=== PATIENT | male | born 1990 | race American Indian/Alaskan Native ===

== ENCOUNTER 2020-06-04 13:18 | Emergency (ER) | payer SELFPAY ==
[2020-06-04 14:34] VITALS: BP 126/79
[2020-06-04] MEDS ORDERED: ONDANSETRON 4 MG/2 ML INJ IV ONE (14:47)
[2020-06-04] MEDS ORDERED: MECLIZINE 25 MG TAB PO ONE (14:47)
[2020-06-04] MEDS ORDERED: SODIUM CHLORIDE 0.9% 1000 ML 1,000 ML IV ONE (14:47)
--- NOTE | 2020-06-04 15:27 | Emergency Department Report ---
ED Dizziness HPI - General Chief Complaint: Nausea/Vomiting/Diarrhea Stated Complaint: DIZZY/VOMIT Time Seen by Provider: 06/04/20 14:31 Source: patient Mode of arrival: Ambulatory Limitations: No Limitations - History of Present Illness Initial Comments: Patient is a 29-year-old male presents emergency room complaints of dizziness that began yesterday. He states that he has an sensation of the room spinning. He states that he only feels the symptoms when he stands up. He states that his head feels heavy and he begins to feel the room spinning as soon as he stands up. He states that he then begins to feel overheated and nauseous. He denies any recent illness. He denies any vision changes, numbness, weakness, vomiting, diarrhea, fever. He denies any past medical history or allergies to medications. - Related Data Previous Rx's Medication Instructions Recorded Last Taken Type Prednisone [predniSONE 10 mg 10 mg PO .TAPER #1 tab.ds.pk 08/23/15 Unknown Rx (6-Day Pack, 21 Tabs)] Pseudoephed/Cod/Guaifen 5 ml PO TID PRN #75 ml 08/23/15 Unknown Rx [Robitussin DAC 10-100-30Mg/5Ml] Azithromycin [Zithromax Z-WILLIAM] 250 mg PO DAILY #6 tab 08/11/16 Unknown Rx Benzonatate [Tessalon Perles] 100 mg PO Q8HR #10 capsule 08/11/16 Unknown Rx Cetirizine HCl [ZyrTEC] 10 mg PO DAILY #30 capsule 08/11/16 Unknown Rx Ibuprofen [Motrin 800 MG tab] 800 mg PO Q8HR PRN #30 tablet 08/11/16 Unknown Rx Meclizine [Antivert] 25 mg PO Q8HR PRN #14 tablet 06/04/20 Unknown Rx Allergies Allergy/AdvReac Type Severity Reaction Status Date / Time shellfish derived Allergy Swelling Verified 06/28/15 00:08 ED Review of Systems ROS: Stated complaint: DIZZY/VOMIT Other details as noted in HPI Comment: All other systems reviewed and negative ED Past Medical Hx - Past Medical History Previous Medical History?: No - Surgical History Past Surgical History?: No Additional Surgical History: bunion removal ? - Social History Smoking Status: Never Smoker Substance Use Type: None - Medications Home Medications: Home Medications Medication Instructions Recorded Confirmed Last Taken Type Prednisone [predniSONE 10 mg 10 mg PO .TAPER #1 tab.ds.pk 08/23/15 Unknown Rx (6-Day Pack, 21 Tabs)] Pseudoephed/Cod/Guaifen 5 ml PO TID PRN #75 ml 08/23/15 Unknown Rx [Robitussin DAC 10-100-30Mg/5Ml] Azithromycin [Zithromax Z-WILLIAM] 250 mg PO DAILY #6 tab 08/11/16 Unknown Rx Benzonatate [Tessalon Perles] 100 mg PO Q8HR #10 capsule 08/11/16 Unknown Rx Cetirizine HCl [ZyrTEC] 10 mg PO DAILY #30 capsule 08/11/16 Unknown Rx Ibuprofen [Motrin 800 MG tab] 800 mg PO Q8HR PRN #30 tablet 08/11/16 Unknown Rx Meclizine [Antivert] 25 mg PO Q8HR PRN #14 tablet 06/04/20 Unknown Rx ED Physical Exam - General Limitations: No Limitations General appearance: alert, in no apparent distress - Head Head exam: Present: atraumatic, normocephalic - Eye Eye exam: Present: normal appearance, PERRL, EOMI. Absent: conjunctival injection, periorbital swelling, periorbital tenderness Pupils: Present: normal accommodation - ENT ENT exam: Present: mucous membranes moist, TM's normal bilaterally, normal external ear exam - Respiratory Respiratory exam: Present: normal lung sounds bilaterally. Absent: respiratory distress, wheezes, rales, rhonchi, stridor, chest wall tenderness, accessory muscle use, decreased breath sounds, prolonged expiratory - Cardiovascular Cardiovascular Exam: Present: regular rate, normal rhythm, normal heart sounds. Absent: systolic murmur, diastolic murmur, rubs, gallop - Neurological Exam Neurological exam: Present: alert, oriented X3, CN II-XII intact, normal gait, other (normal finger to nose, normal heel to mcdonald, 5/5 muscle strength in the BUE/BLE, sensation intact throughout, no focal neuro deficit). Absent: motor sensory deficit - Psychiatric Psychiatric exam: Present: normal affect, normal mood - Skin Skin exam: Present: warm, dry, intact ED Course Vital Signs 06/04/20 06/04/20 13:35 17:35 Temperature 99.7 F H 98.2 F Pulse Rate 54 L Respiratory 18 Rate Blood Pressure 126/79 [Right] O2 Sat by Pulse 99 Oximetry ED Medical Decision Making - Lab Data Result diagrams: 06/04/20 15:11 06/04/20 15:11 Lab Results 06/04/20 06/04/20 Range/Units 15:11 15:11 WBC 9.3 (4.5-11.0) K/mm3 RBC 5.65 H (3.65-5.03) M/mm3 Hgb 15.2 (11.8-15.2) gm/dl Hct 46.2 H (35.5-45.6) % MCV 82 L (84-94) fl MCH 27 L (28-32) pg MCHC 33 (32-34) % RDW 15.1 (13.2-15.2) % Plt Count 221 (140-440) K/mm3 Lymph % (Auto) 7.6 L (13.4-35.0) % [place] % (Auto) 4.0 (0.0-7.3) % Eos % (Auto) 0.0 (0.0-4.3) % Baso % (Auto) 0.1 (0.0-1.8) % Lymph # (Auto) 0.7 L (1.2-5.4) K/mm3 [place] # (Auto) 0.4 (0.0-0.8) K/mm3 Eos # (Auto) 0.0 (0.0-0.4) K/mm3 Baso # (Auto) 0.0 (0.0-0.1) K/mm3 Seg Neutrophils % 88.3 H (40.0-70.0) % Seg Neutrophils # 8.2 H (1.8-7.7) K/mm3 Sodium 139 (137-145) mmol/L Potassium 3.9 (3.6-5.0) mmol/L Chloride 101.7 (98-107) mmol/L Carbon Dioxide 24 (22-30) mmol/L Anion Gap 17 mmol/L BUN 10 (9-20) mg/dL Creatinine 0.9 (0.8-1.3) mg/dL Estimated GFR > 60 ml/min BUN/Creatinine Ratio 11 % Glucose 87 (75-100) mg/dL Calcium 9.3 (8.4-10.2) mg/dL Magnesium 2.00 (1.7-2.3) mg/dL Total Bilirubin 0.80 (0.1-1.2) mg/dL AST 16 (5-40) units/L ALT 11 (7-56) units/L Alkaline Phosphatase 92 (35-129) units/L Total Creatine Kinase 173 H (55-170) units/L Total Protein 7.2 (6.3-8.2) g/dL Albumin 4.3 (3.9-5) g/dL Albumin/Globulin Ratio 1.5 % Vital Signs 06/04/20 06/04/20 13:35 17:35 Temperature 99.7 F H 98.2 F Pulse Rate 54 L Respiratory 18 Rate Blood Pressure 126/79 [Right] O2 Sat by Pulse 99 Oximetry - EKG Data EKG shows normal: sinus rhythm, axis, intervals, QRS complexes, ST-T waves Rate: bradycardia - Radiology Data Radiology results: report reviewed CT BRAIN: 06/04/2020 INDICATION / CLINICAL INFORMATION: dizziness. COMPARISON: None available. FINDINGS: BRAIN/INTRACRANIAL STRUCTURES: Unenhanced CT images of the brain dated straight no evidence of acute intracranial abnormality. Ventricles and sulci are normal in size and shape. There is no evidence of hemorrhage or mass. There are no abnormal extra-axial fluid collections. EXTRACRANIAL STRUCTURES: Unremarkable. IMPRESSION: Negative unenhanced CT of the brain. All CT scans at this location are performed using dose reduction to ALARA by means of automated exposure control. Signer Name: Ebenezer Levine MD Signed: 06/04/2020 3:50 PM Workstation Name: [id number] Transcribed By: AO Dictated By: Ebenezer Levine MD Electronically Authenticated By: Ebenezer Levine MD Signed Date/Time: 06/04/20 155 DD/ 1549 TD/TT: - Medical Decision Making Patient is a 29-year-old male presents emergency room complaints of dizziness that began yesterday. He states that he has an sensation of the room spinning. He states that he only feels the symptoms when he stands up. He states that his head feels heavy and he begins to feel the room spinning as soon as he stands up. He states that he then begins to feel overheated and nauseous. He denies any recent illness. He denies any vision changes, numbness, weakness, vomiting, diarrhea, fever. He denies any past medical history or allergies to medications. VSS. normal orthostatic vital signs. no neuro deficits on exam. labs are normal. EKG with sinus bradycardia, otherwise normal. CT head: Negative unenhanced CT of the brain. pt given 1L IVF, zofran and meclizine and dizziness improved. he states that he only experiences the dizziness with head movements but at rest has no symptoms. presentation most likely consistent with vertigo. pt given prescription for meclizine. advised pt Please take medication as prescribed. Increase your water intake. Please follow-up with your primary care doctor. Return to emergency room immediately for any new or worsening symptoms. - Differential Diagnosis vertigo, labyrinthitis, cerumen, CVA, otitis, mass, hypotension, anemi Critical care attestation.: If time is entered above; I have spent that time in minutes in the direct care of this critically ill patient, excluding procedure time. ED Disposition Clinical Impression: Vertigo, Dizziness, Nausea Disposition: - TO HOME OR SELFCARE Is pt being admited?: No Does the pt Need Aspirin: No Condition: Stable Instructions: Vertigo (ED) Additional Instructions: Please take medication as prescribed. Increase your water intake. Please follow-up with your primary care doctor. Return to emergency room immediately for any new or worsening symptoms. Prescriptions: Meclizine [Antivert] 25 mg PO Q8HR PRN #14 tablet PRN Reason: Vertigo Referrals: PRIMARY MD ADI [Primary Care Provider] - 2-3 Days NIKKI HOFFMAN MD [Staff Physician] - 2-3 Days [facility] [Provider Group] - 2-3 Days Forms: Accompanied Note Time of Disposition: 17:28 Print Language: CHINESE
--- NOTE | 2020-06-04 15:54 | Cat Scan Report ---
CT BRAIN: 06/04/2020 INDICATION / CLINICAL INFORMATION: dizziness. COMPARISON: None available. FINDINGS: BRAIN/INTRACRANIAL STRUCTURES: Unenhanced CT images of the brain dated straight no evidence of acute intracranial abnormality. Ventricles and sulci are normal in size and shape. There is no evidence of hemorrhage or mass. There are no abnormal extra-axial fluid collections. EXTRACRANIAL STRUCTURES: Unremarkable. IMPRESSION: Negative unenhanced CT of the brain. All CT scans at this location are performed using dose reduction to ALARA by means of automated expos ure control. Signer Name: Ebenezer Levine MD Signed: 06/04/2020 3:50 PM Workstation Name: [id number]
[2020-06-04 15:58] LABS: Alanine Aminotransferase 11 units/L (7-56); Albumin 4.3 g/dL (3.9-5); BUN/Creatinine Ratio 11; Blood Urea Nitrogen 10 mg/dL (9-20); Calcium 9.3 mg/dL (8.4-10.2); Hemolysis Index 13
[2020-06-04 16:09] LABS: Basophils % (Auto) 0.1 % (0.0-1.8); Hematocrit 46.2 % (35.5-45.6); Hemoglobin 15.2 gm/dl (11.8-15.2); Lymphocytes # (Auto) 0.7 K/mm3 (1.2-5.4); Lymphocytes % (Auto) 7.6 % (13.4-35.0); Mean Corpuscular HGB Conc 33 % (32-34); Mean Corpuscular Volume 82 fl (84-94); Monocytes # (Auto) 0.4 K/mm3 (0.0-0.8); Platelet Count 221 K/mm3 (140-440); Red Blood Count 5.65 M/mm3 (3.65-5.03); Red Cell Distribution Width 15.1 % (13.2-15.2)
== END 2020-06-04 17:41 | disposition home or self-care (01) ==
LOC: ED 13:18
DX: R42 Dizziness and giddiness (principal); R11.0 Nausea; Z79.1 Long term (current) use of non-steroidal anti-inflammatories (NSAID); Z79.899 Other long term (current) drug therapy; Z91.013 Allergy to seafood
CPT/HCPCS: 36415; 70450; 80053; 82550; 83735; 85025; 93005; 96374; 99284; J2405; J7030

== ENCOUNTER 2021-05-19 01:55 | Emergency (ER) | payer SELFPAY ==
[2021-05-19 02:42] VITALS: BP 109/83
[2021-05-19] MEDS ORDERED: dexAMETHasone 20 MG/5 ML VIAL IM ONE (02:59)
[2021-05-19] MEDS ORDERED: KETOROLAC 30 MG/1 ML INJ IM ONE (02:59)
[2021-05-19] MEDS ORDERED: CYCLOBENZAPRINE 10 MG TAB PO ONE (02:59)
--- NOTE | 2021-05-19 03:32 | XRay Report ---
CERVICAL SPINE 4 VIEWS INDICATION: Left lateral neck pain COMPARISON: None. FINDINGS: No acute, displaced fracture is seen. No prevertebral soft tissue swelling. As the patient is positioned there is slight cervical lordosis. No listhesis. Disc space height is maintained. No significant degenerative changes. CONCLUSION: 1. No acute findings. Signer Name: Mauricio Venegas MD Signed: 05/19/2021 3:28 AM Workstation Name: [id number]
--- NOTE | 2021-05-19 04:05 | Emergency Department Report ---
ED Neck Pain/Injury HPI - General Chief Complaint: Neck Pain/Injury Stated Complaint: LT SHOULDER AND SIDE PAIN Mode of arrival: Ambulatory Limitations: No Limitations - History of Present Illness Initial Comments: Patient is a 32-year-old -[place] female with no past medical history presents to the ED with: Of acute onset persistent severe left maxillary premolar molar toothache with swollen gums on pain for the last 3 days. Patient states that she has been taking [id number] medication with no relief. Patient states that in the last 12 hours the pain got worse such that she has not been able to sleep especially in the last 6 hours. Patient denies chest pain, shortness of breath, nausea, vomiting, heavy lifting, fall, traumatic injury, headache, dizziness, syncope, low back pain, abdominal pain or upper and lower extremity weakness. MD Complaint: neck pain (left lateral neck pain), upper back pain, other (Left lateral neck pain radiating to the left shoulder) -: Sudden, days(s) (4) Place: home Radiation: left lateral, left shoulder, upper back, left upper extremity Severity: severe, constant Severity scale (0 -10): 8 Quality: sharp, aching Consistency: constant Improves With: none Worsens With: movement of extremity (Left arm or shoulder), movement of neck Context: turning/bending Associated Symptoms: numbness (Left arm tingling and numbness sensation), tingling (Left arm tingling or numbness sensation). denies: headache, fever, weakness, vertigo, difficulty walking, swollen glands, difficulty swallowing, nausea, vomiting Treatments Prior to Arrival: Acetaminophen - Related Data Previous Rx's Medication Instructions Recorded Last Taken Type Prednisone [predniSONE 10 mg 10 mg PO .TAPER #1 tab.ds.pk 08/23/15 Unknown Rx (6-Day Pack, 21 Tabs)] Pseudoephed/Cod/Guaifen 5 ml PO TID PRN #75 ml 08/23/15 Unknown Rx [Robitussin DAC 10-100-30Mg/5Ml] Azithromycin [Zithromax Z-WILLIAM] 250 mg PO DAILY #6 tab 08/11/16 Unknown Rx Benzonatate [Tessalon Perles] 100 mg PO Q8HR #10 capsule 08/11/16 Unknown Rx Cetirizine HCl [ZyrTEC] 10 mg PO DAILY #30 capsule 08/11/16 Unknown Rx Meclizine [Antivert] 25 mg PO Q8HR PRN #14 tablet 06/04/20 Unknown Rx Baclofen 20 mg PO Q12H PRN #24 tablet 05/19/21 Unknown Rx Ibuprofen [Motrin 800 MG tab] 800 mg PO Q8HR PRN #30 tablet 05/19/21 Unknown Rx predniSONE [Deltasone] 40 mg PO QDAY #10 tab 05/19/21 Unknown Rx traMADoL [Ultram] 50 mg PO Q6HR PRN #12 tablet 05/19/21 Unknown Rx Allergies Allergy/AdvReac Type Severity Reaction Status Date / Time shellfish derived Allergy Swelling Verified 05/19/21 02:39 ED Review of Systems ROS: Stated complaint: LT SHOULDER AND SIDE PAIN Other details as noted in HPI Constitutional: denies: chills, fever Eyes: denies: eye pain, eye discharge, vision change ENT: denies: ear pain, throat pain Respiratory: denies: cough, shortness of breath, wheezing Cardiovascular: denies: chest pain, palpitations Endocrine: no symptoms reported Gastrointestinal: denies: abdominal pain, nausea, diarrhea Genitourinary: denies: urgency, dysuria Musculoskeletal: arthralgia (Left lateral neck pain), other (Left shoulder pain). denies: back pain, joint swelling Skin: denies: rash, lesions Neurological: denies: headache, weakness, paresthesias Psychiatric: denies: anxiety, depression Hematological/Lymphatic: denies: easy bleeding, easy bruising ED Past Medical Hx - Past Medical History Previous Medical History?: No - Surgical History Additional Surgical History: bunion removal ? - Social History Smoking Status: Never Smoker Substance Use Type: None - Medications Home Medications: Home Medications Medication Instructions Recorded Confirmed Last Taken Type Prednisone [predniSONE 10 mg 10 mg PO .TAPER #1 tab.ds.pk 08/23/15 Unknown Rx (6-Day Pack, 21 Tabs)] Pseudoephed/Cod/Guaifen 5 ml PO TID PRN #75 ml 08/23/15 Unknown Rx [Robitussin DAC 10-100-30Mg/5Ml] Azithromycin [Zithromax Z-WILLIAM] 250 mg PO DAILY #6 tab 08/11/16 Unknown Rx Benzonatate [Tessalon Perles] 100 mg PO Q8HR #10 capsule 11/30/16 Unknown Rx Cetirizine HCl [ZyrTEC] 10 mg PO DAILY #30 capsule 08/11/16 Unknown Rx Meclizine [Antivert] 25 mg PO Q8HR PRN #14 tablet 06/04/20 Unknown Rx Baclofen 20 mg PO Q12H PRN #24 tablet 05/19/21 Unknown Rx Ibuprofen [Motrin 800 MG tab] 800 mg PO Q8HR PRN #30 tablet 05/19/21 Unknown Rx predniSONE [Deltasone] 40 mg PO QDAY #10 tab 05/19/21 Unknown Rx traMADoL [Ultram] 50 mg PO Q6HR PRN #12 tablet 05/19/21 Unknown Rx ED Physical Exam - General Limitations: No Limitations General appearance: alert, in no apparent distress - Head Head exam: Present: atraumatic, normocephalic, normal inspection - Eye Eye exam: Present: normal appearance, PERRL, EOMI Pupils: Present: normal accommodation - ENT ENT exam: Present: normal exam, normal orophraynx, mucous membranes moist, TM's normal bilaterally, normal external ear exam - Neck Neck exam: Present: normal inspection, tenderness (Palpable left lateral cervical musculoskeletal tenderness with limited range of motion due to pain). Absent: full ROM (Limited range of motion of left lateral cervical muscles due to pain), lymphadenopathy - Respiratory Respiratory exam: Present: normal lung sounds bilaterally. Absent: respiratory distress, wheezes, rales, stridor, chest wall tenderness, accessory muscle use, decreased breath sounds, prolonged expiratory - Cardiovascular Cardiovascular Exam: Present: regular rate, normal rhythm, normal heart sounds. Absent: systolic murmur, diastolic murmur, rubs, gallop - GI/Abdominal GI/Abdominal exam: Present: soft, normal bowel sounds. Absent: tenderness, hyperactive bowel sounds, hypoactive bowel sounds, organomegaly - Extremities Exam Extremities exam: Present: normal inspection, full ROM, tenderness (Palpable left shoulder tenderness), normal capillary refill - Back Exam Back exam: Present: normal inspection, full ROM. Absent: tenderness, CVA tenderness (R), CVA tenderness (L), muscle spasm, paraspinal tenderness, vertebral tenderness - Neurological Exam Neurological exam: Present: alert, oriented X3, CN II-XII intact, normal gait, reflexes normal - Psychiatric Psychiatric exam: Present: normal affect, normal mood, anxious - Skin Skin exam: Present: warm, dry, intact, normal color. Absent: rash ED Course Vital Signs 05/19/21 02:40 Temperature 97.7 F Pulse Rate 60 Blood Pressure 109/83 [Left] O2 Sat by Pulse 100 Oximetry ED Medical Decision Making - Radiology Data Radiology results: report reviewed, image reviewed [facility] [address] [place] [address] XRay Report Signed Patient: SARBJIT BUTLER MR#: [id number] : 1990 Acct:[id number] Age/Sex: 30 / M ADM Date: 05/19/21 Loc: ED Attending Dr: Ordering Physician: BANDAR CHUNG Date of Service: 05/19/21 Procedure(s): XR spine cervical 2-3V Accession Number(s): [id number] cc: BANDAR CHUNG Fluoro Time In Minutes: CERVICAL SPINE 4 VIEWS INDICATION: Left lateral neck pain COMPARISON: None. FINDINGS: No acute, displaced fracture is seen. No prevertebral soft tissue swelling. As the patient is positioned there is slight cervical lordosis. No listhesis. Disc space height is maintained. No significant degenerative changes. CONCLUSION: 1. No acute findings. Signer Name: Mauricio Venegas MD Signed: 05/19/2021 3:28 AM Workstation Name: [id number] Transcribed By: TANYA Dictated By: Mauricio Venegas MD Electronically Authenticated By: Mauricio Venegas MD Signed Date/Time: 05/19/21327 DD/ 6 TD/TT: - Medical Decision Making This is a 32-year-old -[place] female with no past medical history presents to the ED with: Of acute onset persistent severe left maxillary premolar molar toothache with swollen gums on pain for the last 3 days. Patient states that she has been taking [id number]-axm-[id number] medication with no relief. Patient states that in the last 12 hours the pain got worse such that she has not been able to sleep especially in the last 6 hours. In the ED, patient is alert and oriented x3 and is not in any distress but anxious. Patient is hemodynamically stable. C-spine x-ray showed no acute fractures or subluxations. Based on the history and physical exam findings, the patient symptoms are likely due to musculoskeletal muscle strain of his left lateral neck area specifically trapezium and sternocleidomastoid muscles. Patient was treated for pain in the ED and on reevaluation, patient's pain is well controlled medications. Patient was therefore discharged home on pain medications and muscle relaxants and advised to follow-up with his primary care physician in 7 to 10 days for reevaluation. Patient is advised return to the ED immediately if symptoms get worse. - Differential Diagnosis Cervical sprain; torticollis; cervical strain; cervical radiculopathy Critical care attestation.: If time is entered above; I have spent that time in minutes in the direct care of this critically ill patient, excluding procedure time. ED Disposition Clinical Impression: Sprain of ligaments of cervical spine, initial encounter, Cervical paraspinous muscle spasm Muscle strain of left shoulder Qualifiers: Encounter type: initial encounter Qualified Code(s): S46.912A - Strain of unspecified muscle, fascia and tendon at shoulder and upper arm level, left arm, initial encounter Disposition: HOME / SELF CARE / HOMELESS Is pt being admited?: No Does the pt Need Aspirin: No Condition: Stable Instructions: Muscle Cramps and Spasms, [id number], Cervical Sprain, [id number], Muscle Strain, [id number], Cervical Strain and Sprain Rehab- [facility] Additional Instructions: The C-spine x-ray showed no acute fractures or subluxations. Therefore your symptoms are due to musculoskeletal strain of your left lateral neck, leading to impingement of the nerve in your neck affecting your left shoulder and arm. Therefore take pain medications with food and muscle relaxants as advised. Follow-up with your primary care physician in 7 to 10 days for reevaluation. Return to the ED immediately if symptoms get worse. Prescriptions: Baclofen 20 mg PO Q12H PRN #24 tablet PRN Reason: Muscle Spasm predniSONE [Deltasone] 40 mg PO QDAY #10 tab Ibuprofen [Motrin 800 MG tab] 800 mg PO Q8HR PRN #30 tablet PRN Reason: Pain traMADoL [Ultram] 50 mg PO Q6HR PRN #12 tablet PRN Reason: Pain Referrals: [facility] [Provider Group] - 3-5 Days Time of Disposition: 04:10 Print Language: MALTESE
== END 2021-05-19 05:22 | disposition home or self-care (01) ==
LOC: ED 01:55
DX: S46.912A Strain of unspecified muscle, fascia and tendon at shoulder and upper arm level, left arm, initial encounter (principal); S13.4XXA Sprain of ligaments of cervical spine, initial encounter; M62.838 Other muscle spasm; K08.89 Other specified disorders of teeth and supporting structures; M54.6 Pain in thoracic spine; Z91.013 Allergy to seafood; Z79.899 Other long term (current) drug therapy; X58.XXXA Exposure to other specified factors, initial encounter; Y93.89 Activity, other specified; Y92.89 Other specified places as the place of occurrence of the external cause; Y99.8 Other external cause status
CPT/HCPCS: 72040; 96372; 99283; J1100; J1885